=== PATIENT | female | born 1995 | race Caucasian/White ===

== ENCOUNTER 2018-06-23 00:04 | Emergency (ER) | payer MEDICAID ==
[2018-06-23] MEDS: ACETAMINOPHEN 325 MG TAB PO (01:56)
[2018-06-23 02:21] LABS: ADD MAN DIFF? NO
[2018-06-23 02:22] LABS: BASOPHIL # 0.1 10^3/ul (0.0-0.1); BASOPHILS % 0.5 % (0.0-2.0); EOSINOPHILS # 0.1 10^3/ul (0.0-0.5); EOSINOPHILS % 0.6 % (0.0-7.0); HEMOGLOBIN 13.9 g/dl (12.0-16.0); LYMPHOCYTES # 2.3 10^3/ul (0.8-2.9); LYMPHOCYTES % 18.7 % (15.0-51.0); MEAN CORPUSCULAR HEMOGLOBIN 29.6 pg (29.0-33.0); MEAN CORPUSCULAR HGB CONC 33.1 g/dl (32.0-37.0); MEAN CORPUSCULAR VOLUME 89.4 fl (82.0-101.0); MEAN PLATELET VOLUME 9.9 fl (7.4-10.4); MONOCYTE # 0.6 10^3/ul (0.3-0.9); MONOCYTES % 4.9 % (0.0-11.0); NEUTROPHILS % 74.9 % (39.0-77.0); PLATELET COUNT 270 10^3/UL (140-415); RED CELL DISTRIBUTION WIDTH 12.9 % (11.5-14.5)
[2018-06-23 02:34] LABS: ADD UMIC NO; UR ASCORBIC ACID 40 mg/dL (NEGATIVE); UR BACTERIA FEW /HPF (NONE SEEN); UR BILIRUBIN (Dip) NEGATIVE (NEGATIVE); UR BLOOD (Dip) NEGATIVE (NEGATIVE); UR CLARITY SLIGHTLY CLOUDY (CLEAR); UR COLOR YELLOW (YELLOW); UR GLUCOSE (Dip) NEGATIVE (NEGATIVE); UR KETONES (Dip) 1+ mg/dL (NEGATIVE); UR LEUKOCYTE ESTERASE (Dip) NEGATIVE Leu/ul (NEGATIVE); UR MUCUS FEW /HPF (NONE SEEN); UR NITRITE (Dip) NEGATIVE (NEGATIVE); UR RBC 1 /HPF (0-5); UR SPECIFIC GRAVITY (Dip) 1.023 (1.003-1.030); UR SQUAMOUS EPITHELIAL CELL FEW /HPF (FEW); UR TOTAL PROTEIN (Dip) NEGATIVE (NEGATIVE); UR UROBILINOGEN (Dip) NEGATIVE (NEGATIVE); UR WBC 3 /HPF (0-5)
== END 2018-06-23 03:36 | disposition home or self-care (01) ==
LOC: FTE 00:04
DX: O26.891 Other specified pregnancy related conditions, first trimester (principal); R10.2 Pelvic and perineal pain; Z3A.13 13 weeks gestation of pregnancy
CPT/HCPCS: 36415; 76801; 81001; 81003; 84702; 85025; 99284-25

== ENCOUNTER 2018-08-02 11:24 | Emergency (ER) | payer MEDICAID ==
[2018-08-02] MEDS: ACETAMINOPHEN 325 MG TAB PO (12:00)
[2018-08-02 12:09] LABS: ADD MAN DIFF? NO
[2018-08-02 12:12] LABS: WHITE BLOOD COUNT 9.8 10^3/ul (4.8-10.8)
[2018-08-02 12:12] LABS: BASOPHILS % 0.4 % (0.0-2.0); EOSINOPHILS # 0.1 10^3/ul (0.0-0.5); EOSINOPHILS % 0.5 % (0.0-7.0); HEMOGLOBIN 12.1 g/dl (12.0-16.0); LYMPHOCYTES # 1.7 10^3/ul (0.8-2.9); MEAN CORPUSCULAR HEMOGLOBIN 30.2 pg (29.0-33.0); MEAN CORPUSCULAR HGB CONC 32.7 g/dl (32.0-37.0); MEAN CORPUSCULAR VOLUME 92.3 fl (82.0-101.0); MEAN PLATELET VOLUME 9.5 fl (7.4-10.4); MONOCYTE # 0.5 10^3/ul (0.3-0.9); MONOCYTES % 5.3 % (0.0-11.0); NEUTROPHIL # 7.5 10^3/ul (1.6-7.5); NEUTROPHILS % 76.2 % (39.0-77.0); PLATELET COUNT 277 10^3/UL (140-415); RED BLOOD COUNT 4.01 10^6/ul (4.20-5.40); RED CELL DISTRIBUTION WIDTH 13.6 % (11.5-14.5)
[2018-08-02 12:25] LABS: ADD UMIC YES; UR AMORPHOUS CRYSTAL MODERATE /HPF (NONE SEEN); UR ASCORBIC ACID NEGATIVE (NEGATIVE); UR BACTERIA FEW /HPF (NONE SEEN); UR BILIRUBIN (Dip) NEGATIVE (NEGATIVE); UR BLOOD (Dip) NEGATIVE (NEGATIVE); UR CLARITY CLOUDY (CLEAR); UR COLOR YELLOW (YELLOW); UR GLUCOSE (Dip) NEGATIVE (NEGATIVE); UR KETONES (Dip) NEGATIVE (NEGATIVE); UR LEUKOCYTE ESTERASE (Dip) NEGATIVE Leu/ul (NEGATIVE); UR NITRITE (Dip) NEGATIVE (NEGATIVE); UR RBC 1 /HPF (0-5); UR SQUAMOUS EPITHELIAL CELL FEW /HPF (FEW); UR TOTAL PROTEIN (Dip) NEGATIVE (NEGATIVE); UR UROBILINOGEN (Dip) NEGATIVE (NEGATIVE); UR WBC 5 /HPF (0-5)
[2018-08-02 12:33] LABS: ALANINE AMINOTRANSFERASE 20 IU/L (13-69); ALBUMIN 3.9 g/dl (3.3-4.9); ALBUMIN/GLOBULIN RATIO 1.21; ALKALINE PHOSPHATASE 59 IU/L (42-121); ANION GAP 13 (5-13); ASPARTATE AMINO TRANSFERASE 19 IU/L (15-46); BILIRUBIN,INDIRECT 0.1 mg/dl (0-1.1); BILIRUBIN,TOTAL 0.1 mg/dl (0.2-1.3); BLOOD UREA NITROGEN 7 mg/dl (7-20); CALCIUM 9.5 mg/dl (8.4-10.2); CARBON DIOXIDE 24 mmol/L (21-31); CHLORIDE 104 mmol/L (97-110); CREATININE 0.54 mg/dl (0.44-1.00); Estimated GFR > 60 mL/min (>60); GLUCOSE 92 mg/dl (70-220); LIPASE 77 U/L (23-300); POTASSIUM 3.8 mmol/L (3.5-5.1); SODIUM 141 mmol/L (135-144); TOTAL PROTEIN 7.1 g/dl (6.1-8.1)
== END 2018-08-02 13:39 | disposition home or self-care (01) ==
LOC: FTE 11:24
DX: O26.892 Other specified pregnancy related conditions, second trimester (principal); R10.11 Right upper quadrant pain; R40.2412 Glasgow coma scale score 13-15, at arrival to emergency department; Z3A.19 19 weeks gestation of pregnancy
CPT/HCPCS: 36415; 76705; 80053; 81001; 83690; 85025; 99284-25

== ENCOUNTER 2018-10-23 19:50 | Inpatient (IN) | payer MEDICAID ==
[2018-10-23] MEDS: LACTATED RINGER'S 1,000 ML IV (21:28)
[2018-10-23] MEDS ORDERED: ACETAMINOPHEN 325 MG TAB PO (21:30)
[2018-10-23 21:56] LABS: ADD MAN DIFF? NO
[2018-10-23 21:58] LABS: WHITE BLOOD COUNT 11.4 10^3/ul (4.8-10.8)
[2018-10-23 21:59] LABS: BASOPHILS % 0.4 % (0.0-2.0); EOSINOPHILS # 0.1 10^3/ul (0.0-0.5); EOSINOPHILS % 0.6 % (0.0-7.0); HEMATOCRIT 40.4 % (37.0-47.0); HEMOGLOBIN 13.1 g/dl (12.0-16.0); LYMPHOCYTES # 2.5 10^3/ul (0.8-2.9); LYMPHOCYTES % 22.2 % (15.0-51.0); MEAN CORPUSCULAR HEMOGLOBIN 30.3 pg (29.0-33.0); MEAN CORPUSCULAR HGB CONC 32.4 g/dl (32.0-37.0); MEAN CORPUSCULAR VOLUME 93.5 fl (82.0-101.0); MEAN PLATELET VOLUME 10.1 fl (7.4-10.4); MONOCYTE # 0.8 10^3/ul (0.3-0.9); NEUTROPHIL # 7.8 10^3/ul (1.6-7.5); NEUTROPHILS % 68.8 % (39.0-77.0); PLATELET COUNT 246 10^3/UL (140-415); RED BLOOD COUNT 4.32 10^6/ul (4.20-5.40); RED CELL DISTRIBUTION WIDTH 13.4 % (11.5-14.5)
[2018-10-24] MEDS: LACTATED RINGER'S 1,000 ML IV ×3 (02:40→18:35)
[2018-10-24] MEDS: FERROUS SULFATE (EC) 325 MG TAB PO (09:00)
[2018-10-24] MEDS: PRENATAL VITAMIN PO (09:00)
[2018-10-24 13:37] LABS: RUPTURE FETAL MEMBRANES NEGATIVE (NEGATIVE)
[2018-10-24] MEDS: BETAMET NA PHOS/AC(6 MG/ML) 2 ML INJ SYG IM (18:04)
[2018-10-24 18:36] LABS: ADD UMIC NO; UR ASCORBIC ACID NEGATIVE (NEGATIVE); UR BILIRUBIN (Dip) NEGATIVE (NEGATIVE); UR BLOOD (Dip) NEGATIVE (NEGATIVE); UR CLARITY CLEAR (CLEAR); UR COLOR COLORLESS (YELLOW); UR GLUCOSE (Dip) NEGATIVE (NEGATIVE); UR KETONES (Dip) NEGATIVE (NEGATIVE); UR LEUKOCYTE ESTERASE (Dip) NEGATIVE Leu/ul (NEGATIVE); UR NITRITE (Dip) NEGATIVE (NEGATIVE); UR SPECIFIC GRAVITY (Dip) 1.002 (1.003-1.030); UR TOTAL PROTEIN (Dip) NEGATIVE (NEGATIVE); UR UROBILINOGEN (Dip) NEGATIVE (NEGATIVE)
[2018-10-25] MEDS: LACTATED RINGER'S 1,000 ML IV ×2 (02:00→13:02)
[2018-10-25] MEDS: FERROUS SULFATE (EC) 325 MG TAB PO (04:00)
[2018-10-25] MEDS: PRENATAL VITAMIN PO (04:00)
[2018-10-25] MEDS ORDERED: MAGNESIUM SULFATE 20 GM/500 ML 500 ML IV (09:00)
[2018-10-25] MEDS ORDERED: MAGNESIUM SULFATE 4 GM/100 ML 100 ML IV (09:30)
[2018-10-25] MEDS: MAGNESIUM SULFATE 4 GM/100 ML 100 ML IV (10:04)
[2018-10-25] MEDS: MAGNESIUM SULFATE 20 GM/500 ML 500 ML IV ×2 (10:06→21:05)
[2018-10-25] MEDS: BETAMET NA PHOS/AC(6 MG/ML) 2 ML INJ SYG IM (11:00)
[2018-10-25 20:15] LABS: MAGNESIUM 5.1 mg/dl (1.7-2.5)
[2018-10-25] MEDS: ONDANSETRON 4 MG INJ IV (21:18)
[2018-10-26] MEDS: LACTATED RINGER'S 1,000 ML IV ×3 (01:23→15:50)
[2018-10-26 01:50] LABS: MAGNESIUM 5.6 mg/dl (1.7-2.5)
[2018-10-26 07:04] LABS: MAGNESIUM 5.5 mg/dl (1.7-2.5)
[2018-10-26] MEDS: MAGNESIUM SULFATE 20 GM/500 ML 500 ML IV (07:14)
[2018-10-26 12:48] LABS: MAGNESIUM 5.3 mg/dl (1.7-2.5)
[2018-10-26] MEDS: FERROUS SULFATE (EC) 325 MG TAB PO (12:58)
[2018-10-26] MEDS: PRENATAL VITAMIN PO (12:58)
[2018-10-27] MEDS: LACTATED RINGER'S 1,000 ML IV ×4 (00:39→20:53)
[2018-10-27] MEDS: PRENATAL VITAMIN PO (08:59)
[2018-10-27] MEDS: FERROUS SULFATE (EC) 325 MG TAB PO (08:59)
[2018-10-27] MEDS: SENNA TAB PO (13:38)
[2018-10-27] MEDS: DOCUSATE SODIUM 100 MG CAP PO ×2 (14:35→21:40)
[2018-10-28] MEDS: FERROUS SULFATE (EC) 325 MG TAB PO (09:10)
[2018-10-28] MEDS: PRENATAL VITAMIN PO (09:10)
[2018-10-28] MEDS: DOCUSATE SODIUM 100 MG CAP PO ×2 (09:10→21:27)
[2018-10-28 23:52] LABS: RUPTURE FETAL MEMBRANES NEGATIVE (NEGATIVE)
[2018-10-29] MEDS: DOCUSATE SODIUM 100 MG CAP PO ×2 (08:48→22:58)
[2018-10-29] MEDS: PRENATAL VITAMIN PO (08:48)
[2018-10-29] MEDS: FERROUS SULFATE (EC) 325 MG TAB PO (08:48)
[2018-10-30] MEDS: PRENATAL VITAMIN PO (08:28)
[2018-10-30] MEDS: FERROUS SULFATE (EC) 325 MG TAB PO (08:28)
[2018-10-30] MEDS: DOCUSATE SODIUM 100 MG CAP PO ×2 (08:28→20:59)
[2018-10-31] MEDS: PRENATAL VITAMIN PO (08:39)
[2018-10-31] MEDS: DOCUSATE SODIUM 100 MG CAP PO ×2 (08:39→20:56)
[2018-10-31] MEDS: FERROUS SULFATE (EC) 325 MG TAB PO (08:39)
[2018-11-01] MEDS: LACTATED RINGER'S 1,000 ML IV ×2 (11:56→18:11)
[2018-11-01] MEDS: DOCUSATE SODIUM 100 MG CAP PO ×2 (12:01→21:09)
[2018-11-01] MEDS: FERROUS SULFATE (EC) 325 MG TAB PO (12:01)
[2018-11-01] MEDS: PRENATAL VITAMIN PO (12:01)
[2018-11-02] MEDS: LACTATED RINGER'S 1,000 ML IV ×3 (01:35→17:37)
[2018-11-02] MEDS: FERROUS SULFATE (EC) 325 MG TAB PO (09:13)
[2018-11-02] MEDS: PRENATAL VITAMIN PO (09:13)
[2018-11-02] MEDS: DOCUSATE SODIUM 100 MG CAP PO ×2 (09:17→22:38)
[2018-11-03] MEDS: LACTATED RINGER'S 1,000 ML IV (01:42)
[2018-11-03] MEDS: PRENATAL VITAMIN PO (08:37)
[2018-11-03] MEDS: DOCUSATE SODIUM 100 MG CAP PO ×2 (08:37→20:47)
[2018-11-03] MEDS: FERROUS SULFATE (EC) 325 MG TAB PO (08:37)
[2018-11-04] MEDS: FERROUS SULFATE (EC) 325 MG TAB PO (08:33)
[2018-11-04] MEDS: DOCUSATE SODIUM 100 MG CAP PO ×2 (08:33→20:51)
[2018-11-04] MEDS: PRENATAL VITAMIN PO (08:33)
[2018-11-05] MEDS: FERROUS SULFATE (EC) 325 MG TAB PO (08:57)
[2018-11-05] MEDS: DOCUSATE SODIUM 100 MG CAP PO ×2 (08:57→20:58)
[2018-11-05] MEDS: PRENATAL VITAMIN PO (08:58)
[2018-11-06] MEDS: PRENATAL VITAMIN PO (09:44)
[2018-11-06] MEDS: DOCUSATE SODIUM 100 MG CAP PO ×2 (09:44→21:15)
[2018-11-06] MEDS: FERROUS SULFATE (EC) 325 MG TAB PO (09:44)
[2018-11-07] MEDS: PRENATAL VITAMIN PO (11:24)
[2018-11-07] MEDS: FERROUS SULFATE (EC) 325 MG TAB PO (11:24)
[2018-11-07] MEDS: DOCUSATE SODIUM 100 MG CAP PO (11:24)
== END 2018-11-07 14:45 | disposition home or self-care (01) | DRG 833 ==
LOC: OBT 19:50 → L-D 10-25 09:54 → PP1 10-27 12:52 → L-D 19:50 → OBT 21:09 → PP1 21:09
PROVIDERS: Obstetrics & Gynecology
DX: O41.03X0 Oligohydramnios, third trimester, not applicable or unspecified (principal); O32.1XX0 Maternal care for breech presentation, not applicable or unspecified; O99.013 Anemia complicating pregnancy, third trimester; Z3A.33 33 weeks gestation of pregnancy
CPT/HCPCS: 76705; 76815; 76816; 76818; 76820; 81003; 83735; 84112; 84443; 85025; 87086

== ENCOUNTER 2018-11-22 13:06 | Outpatient (CLI) | payer MEDICAID ==
[2018-11-22 13:42] LABS: ADD UMIC NO; UR ASCORBIC ACID NEGATIVE (NEGATIVE); UR BILIRUBIN (Dip) NEGATIVE (NEGATIVE); UR BLOOD (Dip) NEGATIVE (NEGATIVE); UR CLARITY CLEAR (CLEAR); UR COLOR COLORLESS (YELLOW); UR GLUCOSE (Dip) NEGATIVE (NEGATIVE); UR KETONES (Dip) NEGATIVE (NEGATIVE); UR LEUKOCYTE ESTERASE (Dip) NEGATIVE Leu/ul (NEGATIVE); UR NITRITE (Dip) NEGATIVE (NEGATIVE); UR SPECIFIC GRAVITY (Dip) 1.001 (1.003-1.030); UR TOTAL PROTEIN (Dip) NEGATIVE (NEGATIVE); UR UROBILINOGEN (Dip) NEGATIVE (NEGATIVE)
[2018-11-22 14:00] LABS: ADD MAN DIFF? NO
[2018-11-22 14:08] LABS: BASOPHIL # 0.1 10^3/ul (0.0-0.1); BASOPHILS % 0.5 % (0.0-2.0); EOSINOPHILS % 0.4 % (0.0-7.0); HEMATOCRIT 39.2 % (37.0-47.0); LYMPHOCYTES # 1.8 10^3/ul (0.8-2.9); LYMPHOCYTES % 17.4 % (15.0-51.0); MEAN CORPUSCULAR HEMOGLOBIN 30.4 pg (29.0-33.0); MEAN CORPUSCULAR HGB CONC 33.2 g/dl (32.0-37.0); MEAN CORPUSCULAR VOLUME 91.8 fl (82.0-101.0); MONOCYTE # 0.7 10^3/ul (0.3-0.9); MONOCYTES % 6.8 % (0.0-11.0); NEUTROPHIL # 7.6 10^3/ul (1.6-7.5); NEUTROPHILS % 73.9 % (39.0-77.0); PLATELET COUNT 240 10^3/UL (140-415); RED BLOOD COUNT 4.27 10^6/ul (4.20-5.40); RED CELL DISTRIBUTION WIDTH 13.8 % (11.5-14.5)
[2018-11-22 14:08] LABS: WHITE BLOOD COUNT 10.3 10^3/ul (4.8-10.8)
[2018-11-22 14:27] LABS: ALANINE AMINOTRANSFERASE 14 IU/L (13-69); ALBUMIN 3.5 g/dl (3.3-4.9); ALKALINE PHOSPHATASE 104 IU/L (42-121); ANION GAP 9 (5-13); ASPARTATE AMINO TRANSFERASE 17 IU/L (15-46); BILIRUBIN,INDIRECT 0.4 mg/dl (0-1.1); BILIRUBIN,TOTAL 0.4 mg/dl (0.2-1.3); BLOOD UREA NITROGEN 9 mg/dl (7-20); CALCIUM 9.1 mg/dl (8.4-10.2); CARBON DIOXIDE 20 mmol/L (21-31); CHLORIDE 107 mmol/L (97-110); CREATININE 0.45 mg/dl (0.44-1.00); Estimated GFR > 60 mL/min (>60); GLUCOSE 80 mg/dl (70-220); POTASSIUM 3.6 mmol/L (3.5-5.1); SODIUM 136 mmol/L (135-144); TOTAL PROTEIN 6.4 g/dl (6.1-8.1); URIC ACID 2.7 mg/dl (3.1-7.9)
[2018-11-22 14:28] LABS: INR 0.91; PROTIME 12.4 Sec (11.9-14.9)
== END 2018-11-22 15:50 | disposition home or self-care (01) ==
LOC: OBT 13:06 → L-D 13:07 → OBT 15:50
DX: O26.893 Other specified pregnancy related conditions, third trimester (principal); R51 Headache; O36.8130 Decreased fetal movements, third trimester, not applicable or unspecified; O26.843 Uterine size-date discrepancy, third trimester; O32.1XX0 Maternal care for breech presentation, not applicable or unspecified; Z3A.35 35 weeks gestation of pregnancy
CPT/HCPCS: 76815; 76818; 80053; 81003; 84560; 85025; 85384; 85610; 85730

== ENCOUNTER 2018-12-16 07:17 | Inpatient (IN) | payer MEDICAID ==
[~2018-12-16 07:17] MED LIST: PHENYLephrine (100 MCG/ML) 10ML SYG
[2018-12-16] MEDS: LACTATED RINGER'S 1,000 ML IV ×2 (07:57→12:47)
[2018-12-16] MEDS ORDERED: CEFAZOLIN 2 GM/50 ML (PMX) 50 ML IVPB (08:00)
[2018-12-16] MEDS ORDERED: MISOPROSTOL 200 MCG TAB PR ×2 (08:00→15:30)
[2018-12-16] MEDS ORDERED: OXYTOCIN 30 UNITS/LR 500 ML IV ×4 (08:00→15:30)
[2018-12-16] MEDS ORDERED: METHYLERGONOVINE 0.2 MG INJ IM ×2 (08:00→15:30)
[2018-12-16] MEDS ORDERED: CARBOPROST 250 MCG INJ IM ×2 (08:00→15:30)
[2018-12-16 08:06] LABS: ADD MAN DIFF? NO
[2018-12-16 08:29] LABS: INR 0.89; PROTIME 12.2 Sec (11.9-14.9)
[2018-12-16 08:30] LABS: PARTIAL THROMBOPLASTIN TIME 28.2 Sec (23.0-35.0)
[2018-12-16 08:35] LABS: WHITE BLOOD COUNT 10.5 10^3/ul (4.8-10.8)
[2018-12-16 08:35] LABS: BASOPHIL # 0.1 10^3/ul (0.0-0.1); BASOPHILS % 0.5 % (0.0-2.0); EOSINOPHILS # 0.1 10^3/ul (0.0-0.5); EOSINOPHILS % 0.6 % (0.0-7.0); HEMATOCRIT 39.1 % (37.0-47.0); LYMPHOCYTES # 2.2 10^3/ul (0.8-2.9); LYMPHOCYTES % 20.6 % (15.0-51.0); MEAN CORPUSCULAR HEMOGLOBIN 30.7 pg (29.0-33.0); MEAN CORPUSCULAR HGB CONC 33.2 g/dl (32.0-37.0); MEAN CORPUSCULAR VOLUME 92.4 fl (82.0-101.0); MEAN PLATELET VOLUME 10.7 fl (7.4-10.4); MONOCYTE # 0.8 10^3/ul (0.3-0.9); MONOCYTES % 7.1 % (0.0-11.0); NEUTROPHIL # 7.3 10^3/ul (1.6-7.5); NEUTROPHILS % 69.9 % (39.0-77.0); PLATELET COUNT 241 10^3/UL (140-415); RED BLOOD COUNT 4.23 10^6/ul (4.20-5.40); RED CELL DISTRIBUTION WIDTH 13.8 % (11.5-14.5)
[2018-12-16 09:54] LABS: HEPATITIS B SURFACE ANTIGEN NEGATIVE (NEGATIVE)
[2018-12-16] MEDS ORDERED: DEXAMETHASONE 4 MG/ML 1 ML INJ (11:20)
[2018-12-16] MEDS ORDERED: ONDANSETRON 4 MG INJ (11:20)
[2018-12-16] MEDS ORDERED: morphine SULFATE/PF (10 MG/10 ML) INJ (11:22)
[2018-12-16] MEDS ORDERED: NALOXONE (0.4 MG/ML) INJ IV (12:30)
[2018-12-16] MEDS ORDERED: HYDROmorphONE 0.5 MG/0.5 ML SYG IV ×2 (12:30)
[2018-12-16] MEDS ORDERED: ZOLPIDEM 5 MG TAB PO (12:30)
[2018-12-16] MEDS ORDERED: ONDANSETRON 4 MG INJ IV (12:30)
[2018-12-16] MEDS ORDERED: DIPHENHYDRAMINE 50 MG INJ IV (12:30)
[2018-12-16] MEDS: KETOROLAC 30 MG INJ IV ×2 (14:17→21:46)
[2018-12-16] MEDS: DEXTROSE 5%-LR 1,000 ML IV ×2 (15:07→23:07)
[2018-12-16] MEDS ORDERED: METHYLERGONOVINE 0.2 MG TAB PO (15:30)
[2018-12-16] MEDS: OXYTOCIN 30 UNITS/LR 500 ML IV (19:59)
[2018-12-16 20:49] LABS: RAPID PLASMA REAGIN NONREACTIVE (NR)
[2018-12-16] MEDS: SENNA/DOCUSATE NA (8.6MG/50MG) TAB PO (21:14)
[2018-12-17] MEDS: DEXTROSE 5%-LR 1,000 ML IV ×2 (05:33→15:07)
[2018-12-17] MEDS: KETOROLAC 30 MG INJ IV (07:49)
[2018-12-17] MEDS: SENNA/DOCUSATE NA (8.6MG/50MG) TAB PO ×2 (09:39→21:30)
[2018-12-17 09:44] LABS: ADD MAN DIFF? NO
[2018-12-17 09:52] LABS: WHITE BLOOD COUNT 10.4 10^3/ul (4.8-10.8)
[2018-12-17 09:52] LABS: BASOPHILS % 0.3 % (0.0-2.0); EOSINOPHILS % 0.4 % (0.0-7.0); HEMOGLOBIN 13.1 g/dl (12.0-16.0); LYMPHOCYTES # 1.8 10^3/ul (0.8-2.9); LYMPHOCYTES % 17.4 % (15.0-51.0); MEAN CORPUSCULAR HEMOGLOBIN 30.2 pg (29.0-33.0); MEAN CORPUSCULAR HGB CONC 32.8 g/dl (32.0-37.0); MEAN CORPUSCULAR VOLUME 92.2 fl (82.0-101.0); MEAN PLATELET VOLUME 10.2 fl (7.4-10.4); MONOCYTE # 0.5 10^3/ul (0.3-0.9); MONOCYTES % 4.9 % (0.0-11.0); NEUTROPHILS % 76.2 % (39.0-77.0); PLATELET COUNT 233 10^3/UL (140-415); RED BLOOD COUNT 4.34 10^6/ul (4.20-5.40); RED CELL DISTRIBUTION WIDTH 14.2 % (11.5-14.5)
[2018-12-17] MEDS: HYDROCODONE/APAP (5/325) TAB NGT ×2 (10:45→17:54)
[2018-12-17] MEDS: HYDROCODONE/APAP (5/325) TAB GTB ×2 (14:28→21:30)
[2018-12-17] MEDS: IBUPROFEN 800 MG TAB PO ×2 (14:28→21:31)
[2018-12-17] MEDS: LANOLIN HPA 1 PKT TOP (21:31)
[2018-12-18] MEDS: HYDROCODONE/APAP (5/325) TAB NGT (04:20)
[2018-12-18] MEDS: IBUPROFEN 800 MG TAB PO ×3 (05:38→21:38)
[2018-12-18] MEDS: HYDROCODONE/APAP (5/325) TAB GTB (05:38)
[2018-12-18] MEDS: SENNA/DOCUSATE NA (8.6MG/50MG) TAB PO ×2 (08:53→21:38)
[2018-12-18] MEDS: HYDROCODONE/APAP (5/325) TAB PO ×3 (08:53→21:38)
[2018-12-18] MEDS: MAGNESIUM HYDROXIDE 30ML CUP PO (08:53)
[2018-12-18] MEDS: LANOLIN HPA 1 PKT TOP (19:41)
[2018-12-19] MEDS: HYDROCODONE/APAP (5/325) TAB PO ×2 (05:47→10:50)
[2018-12-19] MEDS: IBUPROFEN 800 MG TAB PO (05:47)
[2018-12-19] MEDS ORDERED: DIPHTH/TET/ACEL PERTUSS (ADULT) 0.5 ML VIAL IM* (09:00)
[2018-12-19] MEDS: MEASLES,MUMPS,RUBELLA VACCINE INJ SC* (09:00)
[2018-12-19] MEDS: SENNA/DOCUSATE NA (8.6MG/50MG) TAB PO (09:32)
[2018-12-19] MEDS: DIPHTH/TET/ACEL PERTUSS (ADULT) 0.5 ML VIAL IM* (11:42)
== END 2018-12-19 12:50 | disposition home or self-care (01) | DRG 788 ==
LOC: L-D 07:17 → PP1 15:01
PROVIDERS: Obstetrics & Gynecology
PROC: 10D00Z1 Extraction of Products of Conception, Low, Open Approach (ICD-10-PCS; principal; 2018-12-16)
DX: O32.8XX0 Maternal care for other malpresentation of fetus, not applicable or unspecified (principal); G89.18 Other acute postprocedural pain; Z3A.39 39 weeks gestation of pregnancy; Z37.0 Single live birth
CPT/HCPCS: 76815; 85025; 85610; 85730; 86592; 86850; 86900; 86901; 87340; 99464

== ENCOUNTER 2019-01-23 12:10 | Emergency (ER) | payer MEDICAID ==
[2019-01-23 13:26] LABS: ADD MAN DIFF? NO
[2019-01-23 13:28] LABS: BASOPHIL # 0.1 10^3/ul (0.0-0.1); BASOPHILS % 0.8 % (0.0-2.0); EOSINOPHILS # 0.2 10^3/ul (0.0-0.5); EOSINOPHILS % 1.6 % (0.0-7.0); HEMATOCRIT 47.4 % (37.0-47.0); HEMOGLOBIN 15.4 g/dl (12.0-16.0); LYMPHOCYTES # 1.6 10^3/ul (0.8-2.9); LYMPHOCYTES % 15.7 % (15.0-51.0); MEAN CORPUSCULAR HEMOGLOBIN 29.7 pg (29.0-33.0); MEAN CORPUSCULAR HGB CONC 32.5 g/dl (32.0-37.0); MEAN CORPUSCULAR VOLUME 91.5 fl (82.0-101.0); MONOCYTE # 0.5 10^3/ul (0.3-0.9); NEUTROPHIL # 7.5 10^3/ul (1.6-7.5); NEUTROPHILS % 76.5 % (39.0-77.0); PLATELET COUNT 286 10^3/UL (140-415); RED BLOOD COUNT 5.18 10^6/ul (4.20-5.40); RED CELL DISTRIBUTION WIDTH 12.2 % (11.5-14.5)
[2019-01-23 13:28] LABS: WHITE BLOOD COUNT 9.9 10^3/ul (4.8-10.8)
[2019-01-23 13:30] LABS: ADD UMIC NO; UR ASCORBIC ACID NEGATIVE (NEGATIVE); UR BILIRUBIN (Dip) NEGATIVE (NEGATIVE); UR BLOOD (Dip) NEGATIVE (NEGATIVE); UR CLARITY CLEAR (CLEAR); UR COLOR STRAW (YELLOW); UR GLUCOSE (Dip) NEGATIVE (NEGATIVE); UR KETONES (Dip) NEGATIVE (NEGATIVE); UR LEUKOCYTE ESTERASE (Dip) NEGATIVE Leu/ul (NEGATIVE); UR NITRITE (Dip) NEGATIVE (NEGATIVE); UR SPECIFIC GRAVITY (Dip) 1.005 (1.003-1.030); UR TOTAL PROTEIN (Dip) NEGATIVE (NEGATIVE); UR UROBILINOGEN (Dip) NEGATIVE (NEGATIVE)
[2019-01-23 13:46] LABS: ALANINE AMINOTRANSFERASE 53 IU/L (13-69); ALBUMIN 4.7 g/dl (3.3-4.9); ALBUMIN/GLOBULIN RATIO 1.42; ALKALINE PHOSPHATASE 94 IU/L (42-121); ANION GAP 12 (5-13); ASPARTATE AMINO TRANSFERASE 36 IU/L (15-46); BILIRUBIN,INDIRECT 0.5 mg/dl (0-1.1); BILIRUBIN,TOTAL 0.5 mg/dl (0.2-1.3); BLOOD UREA NITROGEN 14 mg/dl (7-20); CALCIUM 9.9 mg/dl (8.4-10.2); CARBON DIOXIDE 26 mmol/L (21-31); CHLORIDE 106 mmol/L (97-110); CREATININE 0.64 mg/dl (0.44-1.00); Estimated GFR > 60 mL/min (>60); GLUCOSE 114 mg/dl (70-220); LIPASE 62 U/L (23-300); POTASSIUM 4.6 mmol/L (3.5-5.1); SODIUM 144 mmol/L (135-144)
== END 2019-01-23 15:04 | disposition home or self-care (01) ==
LOC: FTE 12:10
DX: R10.13 Epigastric pain (principal)
CPT/HCPCS: 36415; 76705; 80053; 81003; 81025; 83690; 85025; 99284-25